=== PATIENT | male | born 1945 | race Caucasian/White ===

== ENCOUNTER 2018-01-10 09:24 | Outpatient (CLI) | payer MEDICARE ==
[2018-01-10 10:45] LABS: Hemoglobin 13.4 g/dL (14.0-18.0); Mean Corpuscular HGB CONC 32.5 g/dL (32.0-36.0); Mean Corpuscular Hemoglobin 32.9 pg (27.0-31.0); Mean Platelet Volume 6.9 fL (7.4-10.4); Platelet Count 266 thou/uL (130-400); RBC Distribution Width 12.8 % (11.5-14.5); Red Blood Cell (RBC) Count 4.06 mill/uL (4.70-6.10); White Blood Cell (WBC) Count 10.3 thou/uL (4.8-10.8)
[2018-01-10 11:08] LABS: Anion Gap 13 mmol/L (10-20); BUN (Urea Nitrogen) 30 mg/dL (8.4-25.7); Calc. Creatinine Clearance 0 mL/min (70-130); Calcium 9.1 mg/dL (7.8-10.44); Carbon Dioxide 29 mmol/L (23-31); Chloride 100 mmol/L (98-107); Estimated GFR-MDRD 45; Glucose 172 mg/dL (83-110); Sodium 137 mmol/L (136-145)
--- NOTE | 2018-01-13 17:27 | EKG ---
Test Reason : Blood Pressure : / mmHG Vent. Rate : 074 BPM Atrial Rate : 074 BPM P-R Int : 142 ms QRS Dur : 146 ms QT Int : 402 ms P-R-T Axes : 049 -78 078 degrees QTc Int : 446 ms AV sequential or dual chamber electronic pacemaker When compared with ECG of 18-OCT-2015 11:13, Vent. rate has increased BY [address] Rut ARREDONDO ([id number]) on 01/13/2018 5:27:25 PM Referred By: LÓPEZ Confirmed By:DR. Rut ARREDONDO
== END 2018-01-10 09:25 | disposition home or self-care (01) ==
LOC: LABBT 09:24
PROVIDERS: ATTEND Orthopaedic Surgery
DX: Z01.812 Encounter for preprocedural laboratory examination (principal); Z01.810 Encounter for preprocedural cardiovascular examination; M65.312 Trigger thumb, left thumb
CPT/HCPCS: 80048; 85027; 93005; 93010

== ENCOUNTER 2018-01-11 07:32 | Day surgery (SDC) | payer MEDICARE ==
[2018-01-10 09:34] VITALS: BMI 31.0
[2018-01-11] MEDS ORDERED: CEFAZOLIN/Water 2 GM/20 ML SYRINGE ONE (08:11)
[2018-01-11] MEDS ORDERED: Lidocaine 1% w/Epinephrine 1:200K 30 ML VIAL ONE (10:25)
--- NOTE | 2018-01-11 11:30 | OP ---
DATE OF PROCEDURE: 01/11/2018 PREOPERATIVE DIAGNOSES: Left trigger thumb with degenerative changes IP joint, left thumb. POSTOPERATIVE DIAGNOSES: Left trigger thumb with degenerative changes IP joint, left thumb. PROCEDURE PERFORMED: Left trigger thumb release. STAFF: Alberto Jimenes M.D. LE[employer] ARCHITECT: None. ANESTHESIA: Wayne. The patient received general LMA intubation. ESTIMATED BLOOD LOSS: Less than 10 cc. TOURNIQUET TIME: 22 minutes at 10 mmHg. ANTIBIOTICS: Ancef 2 grams. COMPLICATIONS: None. HISTORY OF PRESENT ILLNESS: Mr. Cunningham is a 72-year-old male presenting with left thumb pain. The pat ient had tenderness at the point of his A1 stella and his thumb. The patient had some catching and p opping. The patient did receive relief from injection, but stated had reaction to the steroid inject ion and the patient was concerned about extension of his finger which I stated was likely potentially from some degenerative changes in his IP joint as well as the triggering of his thumb. I discussed release. I discussed also referring to a hand surgeon for evaluation. The patient desired for me to perform a release. I discussed risks and benefits of surgery to include pain, scar, bleeding, infec tion, damage to vital structures, need for further surgeries, failure of procedure, continued pain. The patient understood the risks and benefits of a left trigger finger release and elected to proceed . PROCEDURE IN DETAIL: A timeout was performed designating the patient's left upper extremity as the o perative site based on sight, consents, markings. After completion of timeout the patient's tourniqu et was left up for a total 22 minutes at 10 mmHg. I injected a total of 3 mL of lidocaine preoperat ively with epinephrine to help with pain control, I then made a curvilinear incision over the patient 's IP joint of his thumb with the limb facing ulnarly to stay away from the radial nerve. We dissect ed down bluntly with scissors coming down seeing the patient's adductor brevis. I found the A1 pulle y which we dissected using retractors, on top. We dissected and released A1 stella to its comp leteness, made sure we came up near the oblique stella which we did not release. After completion of this, I pulled into the wound that I could tell that the A1 stella was completely released because I could see that it was released past the patient's IP joint as well as just a portion of the insertio n distally, but the oblique ligament was still intact. We then washed. We closed the suture with 4- 0 nylon. Let the tourniquet down after 22 minutes. The patient had a little bit sluggish refill aft er I injected the remainder of 5 mL of lidocaine with epinephrine into the wound. We put a pulse oxi meter at 100% and had good pulses. We then placed soft tissue dressing. He was taken to postop.
[2018-01-11] MEDS ORDERED: Propofol 200 MG/20 ML VIAL ONE (13:54)
== END 2018-01-11 12:27 | disposition home or self-care (01) ==
LOC: SDC 07:32
PROVIDERS: ATTEND Orthopaedic Surgery
PROC: 0LN80ZZ Release Left Hand Tendon, Open Approach (ICD-10-PCS; principal; 2018-01-11)
DX: M65.312 Trigger thumb, left thumb (principal); Z98.890 Other specified postprocedural states
CPT/HCPCS: J2704